=== PATIENT | female | born 1980 | race Caucasian/White ===

== ENCOUNTER 2020-01-03 15:36 | Outpatient (CLI) | payer OTHER, SELFPAY ==
--- NOTE | ~2020-01-03 | MM_ITS ---
EXAMINATION: MM screening [facility] BI w cecily HISTORY: Screening mammogram TECHNIQUE: Craniocaudal and mediolateral oblique 3-D tomosynthesis images were obtained and synthetic 2-D images were generated. CAD analysis was submitted and interpreted. COMPARISON: No prior mammogram is available for comparison at this institution. BREAST PARENCHYMAL COMPOSITION: There are scattered areas of fibroglandular density. FINDINGS: There is no evidence of suspicious mass, calcification, or architectural distortion to sugg est malignancy in either breast. There has been no suspicious interval change. IMPRESSION: 1. No mammographic evidence of malignancy. 2. Recommend routine screening mammography in one year. BI-RADS Category 1: Negative Reviewed, dictated and finalized at location A.
== END 2020-01-03 15:37 | disposition home or self-care (01) ==
LOC: ANHIMG 15:38
PROVIDERS: PCP Family Medicine; Visit Provider Nurse Practitioner
DX: Z12.31 Encounter for screening mammogram for malignant neoplasm of breast (principal)
CPT/HCPCS: 77063; 77067

== ENCOUNTER 2021-01-08 09:50 | Outpatient (CLI) | payer BC, SELFPAY ==
--- NOTE | ~2021-01-08 | MM_ITS ---
EXAMINATION: MM screening [facility] BI w cecily HISTORY: Screening mammogram TECHNIQUE: Craniocaudal and mediolateral oblique 3-D tomosynthesis images were obtained and synthetic 2-D images were generated. CAD analysis was submitted and interpreted. COMPARISON: No prior mammogram is available for comparison at this institution. BREAST PARENCHYMAL COMPOSITION: There are scattered areas of fibroglandular density. FINDINGS: There is no evidence of suspicious mass, calcification, or architectural distortion to sugg est malignancy in either breast. There has been no suspicious interval change. IMPRESSION: 1. No mammographic evidence of malignancy. 2. Recommend routine screening mammography in one year. BI-RADS Category 1: Negative Reviewed, dictated and finalized at location A.
== END 2021-01-08 09:51 | disposition home or self-care (01) ==
LOC: ANHIMG 09:53
PROVIDERS: PCP Family Medicine; Visit Provider Obstetrics & Gynecology Gynecology
DX: Z12.31 Encounter for screening mammogram for malignant neoplasm of breast (principal)
CPT/HCPCS: 77063; 77067

== ENCOUNTER → 2021-01-28 16:05 | Outpatient (CLI) | payer BC, SELFPAY ==
--- NOTE | ~2021-01-28 | XR_ITS ---
EXAMINATION: XR chest 2V DATE: 01/28/2021 16:26 INDICATION: Cough. Chest pain. TECHNIQUE: Frontal and lateral views of the chest were obtained. COMPARISON: None. FINDINGS: The chest demonstrates clear lungs without pneumonia, pleural effusion, or pneumothorax. Th e heart size is normal. IMPRESSION: 1. No acute cardiopulmonary disease. Reviewed, dictated and finalized at location A. T ORDER FRY COOK
== END ==
PROVIDERS: PCP Family Medicine; Visit Provider Family Medicine
DX: R05.9 Cough, unspecified (principal)
CPT/HCPCS: 71046

== ENCOUNTER 2022-01-13 17:36 | Outpatient (CLI) | payer BC, SELFPAY ==
--- NOTE | ~2022-01-13 | MM_ITS ---
EXAMINATION: MM screening [facility] BI w cecily HISTORY: Screening TECHNIQUE: Craniocaudal and mediolateral oblique 3-D tomosynthesis images were obtained and synthetic 2-D images were generated. CAD analysis was submitted and interpreted. COMPARISON: Comparison to multiple prior studies sequentially, with oldest reviewed study dated 12/12. BREAST PARENCHYMAL COMPOSITION: There are scattered areas of fibroglandular density. FINDINGS: There is no evidence of suspicious mass, calcification, or architectural distortion to sugg est malignancy in either breast. There has been no suspicious interval change. IMPRESSION: 1. No mammographic evidence of malignancy. 2. Recommend routine screening mammography in one year. BI-RADS Category 1: Negative Reviewed, dictated and finalized at location A.
== END 2022-01-13 17:37 | disposition home or self-care (01) ==
PROVIDERS: PCP Family Medicine; Visit Provider Nurse Practitioner
DX: Z12.31 Encounter for screening mammogram for malignant neoplasm of breast (principal)
CPT/HCPCS: 77063; 77067

== ENCOUNTER 2023-02-21 16:44 | Outpatient (CLI) | payer BC, SELFPAY ==
--- NOTE | ~2023-02-21 | MM_ITS ---
EXAMINATION: MM screening anthony BI w cecily HISTORY: Screening TECHNIQUE: Craniocaudal and mediolateral oblique 3-D tomosynthesis images were obtained and synthetic 2-D images were generated. CAD analysis was submitted and interpreted. COMPARISON: Comparison to multiple prior studies sequentially, with oldest reviewed study dated 12/12. BREAST PARENCHYMAL COMPOSITION: Breast composed of scattered areas of fibroglandular density FINDINGS: There are developing asymmetries in the right breast including the subareolar location in t he upper outer quadrant. The left breast is stable without evidence for malignancy. IMPRESSION: 1. Developing right breast asymmetries. 2. Additional mammographic views and possible breast ultrasound are recommended. BI-RADS Category 0: Incomplete: Needs additional imaging evaluation. Reviewed, dictated and finalized at location A. IN SEPARATOR OPERATOR IMPRESSION: 1. Developing right breast asymmetries. 2. Additional mammographic views and possible breast ultrasound are recommended . BI-RADS Category 0: Incomplete: Needs additional imaging evaluation.
== END 2023-02-21 16:45 | disposition home or self-care (01) ==
PROVIDERS: PCP Family Medicine; Visit Provider Obstetrics & Gynecology Gynecology
DX: Z12.31 Encounter for screening mammogram for malignant neoplasm of breast (principal); R92.8 Other abnormal and inconclusive findings on diagnostic imaging of breast
CPT/HCPCS: 77063; 77067

== ENCOUNTER 2023-03-16 09:06 | Outpatient (CLI) | payer BC, SELFPAY ==
--- NOTE | ~2023-03-16 | MMUS_ITS ---
EXAMINATION: MM diagnostic anthony RT w cecily, US breast RT limited HISTORY: Right breast focal asymmetries on screening mammogram TECHNIQUE: Additional 3-D tomosynthesis images of the right breast were performed and synthetic 2-D i mages were generated. CAD analysis was submitted and interpreted. High resolution limited right breas t ultrasound was performed. COMPARISON: 02/21/2023, 01/13/2022, 01/08/2021 FINDINGS: MAMMOGRAPHIC FINDINGS: There is a return to baseline fibroglandular appearance with spot compression of the right breast in the areas questioned on screening mammogram. No suspicious mass, calcification, or architectural dist ortion are identified ULTRASOUND: There is no evidence of focal abnormal solid or cystic mass in the vicinity of the mammographic findi ngs in question. IMPRESSION: 1. No mammographic or sonographic evidence of malignancy. 2. Recommend routine screening mammography in one year. BI-RADS Category 1: Negative Reviewed, dictated and finalized at location A. RVISOR CLEANING AND ANNEALING IMPRESSION: 1. No mammographic or sonographic evidence of malignancy. 2. Recommend routine screening mammography in one year. BI-RADS Category 1: Negative
== END 2023-03-16 09:07 | disposition home or self-care (01) ==
LOC: CHSIMG 09:09
PROVIDERS: PCP Family Medicine; Visit Provider Obstetrics & Gynecology Gynecology
DX: R92.8 Other abnormal and inconclusive findings on diagnostic imaging of breast (principal)
CPT/HCPCS: 76642; 77061; 77065; G0279

== ENCOUNTER 2023-04-03 01:26 | Day surgery (SDC) | payer BC, SELFPAY ==
[2023-03-23 12:06] VITALS: BMI 32.3
--- NOTE | 2023-03-23 12:12 | PC.NURSE ---
Report to the Outpatient Waiting Room, entrance under the green pavilion located off [facility], at time _1130_ on date _[id number]_. Planned Procedure Time: _130pm_. Time changes happen often and if your time is changed the preop area will call you the afternoon before. - You and your visitor will be asked to self-screen and do not enter if you have any COVID symptoms. - A mask is optional within the hospital at this time. Patients may have clear liquids (water, carbonated beverages, clear teas, apple juice) until 3 hours prior to surgery with a maximum of 20 ounces. - No food from midnight until time of surgery Take the following medications with a SIP of water the morning of surgery: ___Hydroxyzine if needed. DO NOT STOP ANY OF YOUR OTHER PRESCRIPTION MEDICATIONS PRIOR TO SURGERY ?EXCEPT THE FOLLOWING Medications to discontinue per physician All vitamins Date to take last [phone] Please no make-up, nail mongolian, hairspray, perfume, deodorant, or body powder the day of surgery. No jewelry (including any body piercings) or valuables the day of surgery, leave them at home. Please take a shower or bath the night before, or the morning of, surgery with an antibacterial soap. Wear comfortable, loose fitting clothing. - Jewelry must be removed prior to entering the operating room. Rings and piercings that are not removed may be cut off. - The hospital will not accept responsibility for valuables. - Please leave all valuables, including medications, at home the day of surgery. If you are going home after surgery, a licensed snaker tractor driver must drive you home. - NO public transportation without another adult if you receive anesthesia. - We recommend that an adult stay with you for 24 hours following discharge. - We also recommend that you do not drive, make important decision, drink alcoholic beverages, or take any drugs that were not prescribed by your health care provider for at least 24 hours after your discharge time. Follow any additional instructions given to you from your surgeon. If you or anyone in your household have experienced Covid symptoms in the past week, please notify your surgeon or the nurse liaison at the phone number below for possible testing. Telephone instructions given to _Izzy__and asked if any additional questions and then verbalized understanding. Patient advised to call surgeon office or pre surgery nurse liaison [phone] if any additional questions.
--- NOTE | 2023-04-03 08:24 | P.HP_ITS ---
History of Present Illness History of Present Illness Consent: Risks, benefits, and alternatives have been discussed and questions answered. Patient agrees to proceed with procedure. Chief complaint: Menorrhagia Narrative: Izzy Hawkins is a 43 year old female with prolonged vaginal bleeding. Patient began bleeding on 02/10 and her cycle was heavier than typical using a pad and a tampon and breaking through her to her clothes. This lasted for 2 days. She th en had 2 weeks of continuous bleeding. She stopped for a few days and then began bleeding again on 02/22. It was recommended to undergo D and C hysteroscopy. Risks of infection, bleeding, perforation, and possible pathology are discussed. Patient voices understanding and agrees to proceed. Review of Systems Review of Systems: not repeated day of surgery; patient states no changes in status PMFSH Past Medical History Medical History (Updated 04/03/23 @ 08:27 by Charito Thomas MD) Fracture of 3rd metatarsal Generalized anxiety disorder Mild intermittent asthma with (acute) exacerbation (normal spontaneous vaginal delivery) x4 Surgical History Surgical History (Updated 04/03/23 @ 08:26 by Charito Thomas MD) History of bilateral tubal ligation Family History Family History Sibling Family history of multiple sclerosis Family history of dementia Social History Social History Smoking status: Never smoker Living arrangements: with family Spiritual care concerns: No Meds Home Medications and Allergies Home Medications Medication Instructions Recorded Confirmed Type albuterol sulfate 90 mcg/actuation 2 inh inhalation Q4H PRN shortness 12/23/20 03/23/23 Rx aerosol inhaler (Proventil HFA) of breath or wheezing #8.5 grams cyanocobalamin (vitamin B-12) 500 500 mcg PO DAILY 03/23/23 03/23/23 History mcg tablet (Vitamin B-12) ergocalciferol (vitamin D2) 1,250 1,250 mcg PO WEEKLY 03/23/23 03/23/23 History mcg (50,000 unit) capsule hydroxyzine pamoate 25 mg capsule 25 mg PO TID PRN Anxiety 03/23/23 03/23/23 History multivitamin 1 tablet PO DAILY 03/23/23 03/23/23 History Allergies Allergy/AdvReac Type Severity Reaction Status Date / Time No Known Allergies Allergy Mild Verified 03/23/23 12:03 Exam Const: General: healthy appearing and alert Orientation/consciousness: patient oriented x3 Resp: Effort & Inspection: normal respiratory effort : External Female Exam: normal external appearance Speculum Exam - Vagina: normal appearance of the vagina and normal vaginal discharge Speculum Exam - Cervix: normal appearance of the cervix Bimanual exam- vagina & uterus: uterine size normal and consistency normal Bimanual Exam- Adnexa, other: normal adnexae and No adnexal tenderness Neuro: General: patient oriented x3 Assessment and Plan Assessment and plan (1) Menorrhagia: Code(s): N92.0 - Excessive and frequent menstruation with regular cycle Status: Acute Assessment and Plan: plan to proceed with D&C hysteroscopy
--- NOTE | 2023-04-03 08:24 | WPDHPUPDATE1 ---
History and Physical Update Update Date/Time: 04/03/23 08:24 History and Physical has been reviewed, including an updated exam of the patient. There are NO changes in the patient's condition. Risks, benefits, and alternatives have been discussed and questions answered. Patient agrees to proceed with procedure.
[2023-04-03 09:58] VITALS: BP 120/74; PULSE 87; RESP 18; TEMP 36.7; O2SAT 100
--- NOTE | 2023-04-03 10:21 | P.PNAN_ITS ---
Anes - Initial Pre Proc Eval Procedure: Operation Date: 04/03/23 12:45 Proposed Procedures p Hysteroscopy Dilation and Curettage - Charito Thomas MD Date/Time: 04/03/23 10:21 Surgeon: Charito Thomas MD Pre Op Diagnosis: Menorrhagia Patient Data Age: 43 Gender: F Height: 1.68 m Weight: 91 kg Allergies Allergy/AdvReac Type Severity Reaction Status Date / Time No Known Allergies Allergy Mild Verified 03/23/23 12:03 Home Medications Medication Instructions Recorded Confirmed Type albuterol sulfate 90 mcg/actuation 2 inh inhalation Q4H PRN shortness 12/23/20 03/23/23 Rx aerosol inhaler (Proventil HFA) of breath or wheezing #8.5 grams cyanocobalamin (vitamin B-12) 500 500 mcg PO DAILY 03/23/23 03/23/23 History mcg tablet (Vitamin B-12) ergocalciferol (vitamin D2) 1,250 1,250 mcg PO WEEKLY 03/23/23 03/23/23 History mcg (50,000 unit) capsule hydroxyzine pamoate 25 mg capsule 25 mg PO TID PRN Anxiety 03/23/23 03/23/23 History multivitamin 1 tablet PO DAILY 03/23/23 03/23/23 History Patient hx anesthesia problems: none Family hx anesthesia problems: none Results Review: All pre-operative results and documents have been reviewed as part of the pre- operative evaluation. [facility] Past Medical History Medical History (Updated 04/03/23 @ 08:27 by Charito Thomas MD) Fracture of 3rd metatarsal Generalized anxiety disorder Mild intermittent asthma with (acute) exacerbation (normal spontaneous vaginal delivery) x4 Surgical History Surgical History (Updated 04/03/23 @ 08:26 by Charito Thomas MD) History of bilateral tubal ligation Family History Family History Sibling Family history of multiple sclerosis Family history of dementia Social History Social History Smoking status: Never smoker Living arrangements: with family Spiritual care concerns: No Anes - Eval Final PreProcedure Day of Procedure 04/03/23 10:21 Patient weight: obese Heart: regular rate and rhythm Lungs: clear to auscultation Airway: Mallampati scale class II Neurological: alert and oriented Last oral intake: >/= 8 hours ASA classification: II Emergent: no Anesthetic plan: proceed Anesthesia type and monitoring: general GIVS and standard monitoring Results Review: All pre-operative results and documents have been reviewed as part of the pre- operative evaluation. Informed Consent: The patient's anesthetic plan and its attendant risks and benefits were discussed with the patient/family/POA. Questions were solicited and answers provided to the satisfaction of the patient/family/POA.
[2023-04-03] MEDS: ACETAMINOPHEN 500 MG TABLET 1000 MG PO (10:28)
[2023-04-03] MEDS: LACTATED RINGERS 1,000 ML 30 ML IV CONT (10:28)
[2023-04-03 11:50] VITALS: BP 98/54; PULSE 71; RESP 12; O2SAT 94
--- NOTE | 2023-04-03 11:50 | P.OP_ITS ---
Procedure Note - Detailed Date of Procedure 04/03/23 Pre-op Diagnosis Menorrhagia Post-op Diagnosis Same Procedure Performed D&C hysteroscopy Surgeon Charito Thomas MD Anesthesia MAC Findings The uterus sounds to 7cm and appears grossly normal. Description of Procedure The patient is taken to the operating room and placed under anesthesia in the dorsal lithotomy position. She was prepped and draped in the usual sterile fashion. [place] speculum was placed in the vagina and the cervix grasped on the anterior lip with a tenaculum. The uterus is sounded to 7cm. The diagnostic hysteroscope was placed and with everything appearing normal it is immediately removed. The sharp curette is used to curette the endometrium until a good uterine cry was noted in all areas. All instruments are removed. Sponge, needle, and instrument counts are normal per the OR staff. The patient was awakened from anesthesia and taken to recovery in stable condition. Estimated Blood Loss 5 Drains No Packing No Pathology Yes ( Endometrial curettings) Complications No immediate complications Condition Stable Disposition PACU
[2023-04-03 12:20] VITALS: BP 101/54; PULSE 53; RESP 14
[2023-04-03 12:35] VITALS: BP 102/62; PULSE 44; RESP 16
== END 2023-04-03 12:55 | disposition home or self-care (01) ==
PROVIDERS: PCP Family Medicine; Visit Provider Obstetrics & Gynecology Gynecology
PROC: 0U5B8ZZ Destruction of Endometrium, Via Natural or Artificial Opening Endoscopic (ICD-10-PCS; CPT 58563; principal; 2023-04-03 12:45)
DX: N92.0 Excessive and frequent menstruation with regular cycle (principal); F41.1 Generalized anxiety disorder; J45.21 Mild intermittent asthma with (acute) exacerbation; E66.9 Obesity, unspecified; Z68.32 Body mass index [BMI] 32.0-32.9, adult; Z79.51 Long term (current) use of inhaled steroids; Z98.51 Tubal ligation status
CPT/HCPCS: 58558; 88305; A9270; J1100; J2250; J2405; J2704; J3010; J7120

== ENCOUNTER → 2023-05-01 13:38 | Outpatient (CLI) | payer BC, SELFPAY ==
--- NOTE | ~2023-05-01 | XR_ITS ---
EXAMINATION: XR hand BI arthritis min 3V DATE: 05/01/2023 14:02 INDICATION: Hand pain, unspecified TECHNIQUE: Posteroanterior, lateral, and oblique views of the left and of the right hands as well as a ballcatchers view of both hands were obtained. COMPARISON: None. FINDINGS: Bone alignment is normal. There is no fracture. No abnormal erosion or sclerosis are identified. Ther e is mild periarticular soft tissue swelling near the proximal interphalangeal joints. The joint spac es are maintained. IMPRESSION: 1. Mild periarticular soft tissue swelling of the proximal interphalangeal joints without abnormal er osions identified. Reviewed, dictated and finalized at location L. AL EDUCATION TEACHER IMPRESSION: 1. Mild periarticular soft tissue swelling of the proximal interphalangeal join ts without abnormal erosions identified.
== END ==
PROVIDERS: PCP Family Medicine; Visit Provider Nurse Practitioner Family
DX: M25.50 Pain in unspecified joint (principal); M79.89 Other specified soft tissue disorders
CPT/HCPCS: 73130

== ENCOUNTER 2024-04-18 13:50 | Outpatient (CLI) | payer BC, SELFPAY ==
--- NOTE | ~2024-04-18 | MM_ITS ---
EXAMINATION: MM screening anthony BI w cecily HISTORY: Screening TECHNIQUE: Craniocaudal and mediolateral oblique 3-D tomosynthesis images were obtained and synthetic 2-D images were generated. CAD analysis was submitted and interpreted. COMPARISON: Comparison to multiple prior studies sequentially, with oldest reviewed study dated 12/12. BREAST PARENCHYMAL COMPOSITION: Dense: The breasts are heterogeneously dense, which may obscure small masses FINDINGS: There is a focal asymmetry in the periareolar location of the right breast which has develo ped since prior examination. The left breast is stable without evidence for malignancy. IMPRESSION: 1. Developing right breast asymmetry in the periareolar location. 2. Additional mammographic views and possible breast ultrasound are recommended. BI-RADS Category 0: Incomplete: Needs additional imaging evaluation. Reviewed, dictated and finalized at location B. CTOR OF REIMBURSEMENT IMPRESSION: 1. Developing right breast asymmetry in the periareolar location. 2. Additional mammographic views and possible breast ultrasound are recommended . BI-RADS Category 0: Incomplete: Needs additional imaging evaluation.
--- OUTSIDE RECORDS SUMMARY | 2024-04-18 13:55 | XMS_ITS | Clinical Summary ---
Author Organization [facility] Address [address] [place] [address] Phone Care Team Providers Care Blending Kettle Tender Name Role Phone Carolin Jameson MD Primary Care Provider Social History Tobacco Use Types Packs/Day Years Used Date Smoking Tobacco: Never Assessed Comments Unknown Sex and Gender Information Value Date Recorded Sex Assigned at Not on file Legal Sex Female 6:11 AM EVENTS MANAGER Gender Identity Not on file Sexual Orientation Not on file Plan of Treatment Health Maintenance Due Date Last Done Comments DTAP/TDAP/TD VACCINES (1 - Tdap) 12/31/1998 HEPATITIS B VACCINES (1 of 3 - 19+ 3-dose series) 12/31/1998 CERVICAL CANCER SCREENING 12/31/2009 BREAST CANCER SCREENING 2020 INFLUENZA VACCINE (#1) 2023 HPV VACCINES Aged Out No longer eligi ble based on patient's age to complete this topic Care Teams Blending Kettle Tender Relationship Specialty Start Date End Date Carolin Jameson MD PCP - General Family Practice 12/15/11
--- OUTSIDE RECORDS SUMMARY | 2024-04-18 13:55 | XMS_ITS | Clinical Summary ---
Author Organization [facility] Address [address] [place] [address] Care Team Providers Care Cyber Workforce Developer And Manager Name Role Phone Carolin Jameson MD Primary Care Provider [phone] Source Comments [facility],non-owned Affiliates and Associated Physician Practices is amultiple site organization consisting of ambulatory clinics and hospital sitesin [place], [place], [place] and [place]. This disclosure is being madepursuant to the Care Everywhere program and may not contain all information available regarding this patient. Last updated 17.[facility] Allergies No known active allergies Medications * Be aware that medications may not be up to date on this document. Alwaysverify current medications with the patient. Medication Sig Dispensed Refills Start Date End Date Status Multiple Vitamins-Minerals (MULTIVITAMIN & MINERAL PO) Active methotrexate 2.5 MG tablet TAKE 5 TABLETS BY MOUTH IN THE MORNING AND 5 TABLETS IN THE EVENING ONE DAY A WEEK Active folic acid (Folvite) 1 MG tablet Take 1 (one) tablet by mouth once daily Active Active Problems Problem Noted Date Diagnosed Date Basal cell carcinoma of nose 11/29/2017 Anxiety 10/10/2012 Encounters Date Type Department Care Team Description 04/16/2024 10:00 AM PEANUT FARMER Office Visit [facility] - TUBER MACHINE OPERATOR [address] [place] [address] Chetna Coaets Che, MD Incomplete bladder emptying (Primary Dx); Urgency incontinence; Stress incontinence; Rectocele; Perineocele 04/16/2024 Travel 04/05/2024 Travel from Last 3 Months Immunizations Name Administration Dates Next Due INFLUENZA VACCINE, QUADR. (F LUZONE; FLULAVAL; FLUARIX; AFLURIA QUADRIVALENT; 6MO+), 0.5 ML (IIV4) 12/26/2018 Family History Medical History Relation Name Comments Cancer - Liver Father Relation Name Status Comments Brother Alive Father Maternal Grandfather Maternal Grandmother Mother Paternal Grandfather Paternal Grandmother Social History Tobacco Use Types Packs/Day Years Used Date Smoking Tobacco: Never Smokeless Tobacco: Never Alcohol Use Standard Drinks/Week Comments Yes 0 (1 standard drink = 0.6 oz pur e alcohol) 1 Sex and Gender Information Value Date Recorded Sex Assigned at Not on file Gender Identity Not on file Sexual Orientation Not on file Last Filed Vital Signs Vital Sign Reading Time Taken Comments Blood Pressure 122/72 04/16/2024 9:34 AM PEANUT FARMER Pulse 64 12/13/2017 8:54 AM CDT Temperature - - Respiratory Rate - - Oxygen Saturation 98% 12/13/2017 8:54 AM CDT Inhaled Oxygen Concentration - - Weight 75.2 kg (165 lb 12.8 oz) 04/16/2024 9:34 AM PEANUT FARMER Height 167.6 cm (5' 6 ) 04/16/2024 9:34 AM PEANUT FARMER Body Mass Index 26.76 04/16/2024 9:34 AM PEANUT FARMER Plan of Treatment Upcoming Encounters Date Type Department Care Team (Late st Contact Info) Description 05/28/2024 1:30 PM CDT Procedure visit [facility] - TUBER MACHINE OPERATOR [address] [facility] [address] [place] [address] Chetna Coates Che, MD [address] [facility] [address] [place] [address] Health Maintenance Due Date Last Done Comments LIPID TESTING 1980 MAMMOGRAM 1980 PAP SMEAR 1980 HIV SCREENING 12/31/1994 HEPATITIS C SCREENING 12/27/1997 DTAP/TDAP/TD VACCINES (1 - Tdap) 12/31/1998 HEPATITIS B VACCINE (1 of 3 - 19+ 3-dose series) 12/31/1998 COVID-19 VACCINE (2 2023-2 5 season) 2023 06/15/2020 INFLUENZA VACCINE (#1) 2023 12/26/2018 DEPRESSION SCREENING 03/13/2024 SCREENING FOR DIABETES 04/16/2024 ZOSTER VACCINE (1 of 2) 12/31/2029 HIB VACCINE Aged Out No longer eligi ble based on patient's age to complete this topic HPV VACCINE Aged Out No longer eligi ble based on patient's age to complete this topic MENINGOCOCCAL (Group B) VACCINE Aged Out No longer eligible based on patient's age to complete this topic MENINGOCOCCAL VACCINE Aged Out No sesar gutierrez eligible based on patient's age to complete this topic PNEUMOCOCCAL VACCINE Aged Out No long er eligible based on patient's age to complete this topic Procedures Procedure Name Priority Date/Time Associated Diagnosis Comments CULTURE URINE COMPREHENSIVE Routine 04/16/2024 10:55 AM PEANUT FARMER Incomplete bladder emptying Urgency incontinence Stress incontinence RI INSERT NON-INDWELLING BLADDER Routine 04/16/2024 10:50 AM PEANUT FARMER Incomplete bladder emptying Urgency incontinence Stress incontinence URINALYSIS AUTO - POINT OF CARE (AMB) [facility] Routine 04/16/2024 Incomplete bladder emptying Urgency incontinence Stress incontinence from Last 3 Months Results * RI INSERT NON-INDWELLING BLADDER (04/16/2024 10:50 AM PEANUT FARMER) Narrative Chetna Coates Che, MD - 04/16/2024 10:50 AM PEANUT FARMER Chetna Coates Che, MD 04/16/2024 11:57 AM The patient was prepped with betadine (or with hibiclens or other antiseptic agent if allergic to topical iodine). She understood the rationale for the procedure and agreed to the procedure. A 14F short female catheter was then advanced into the urethra and urine was collected for bedside urinalysis as well as a urine culture and/or formal urinalysis as needed. The post void residual is as noted in the progress note, as are results of the dipstick taken. The patient tolerated the procedure well. Chetna Coates MD PROCEDURE/MINOR SURG ICAL ORDERABLES * URINALYSIS AUTO - POINT OF CARE (AMB) [facility] (04/16/2024) Glucose UA neg OTHER LAB Bilirubin UA POCT neg OTHER LAB Ketones UA POCT neg OTHER LAB Specific [place] UA 1.010 OTHER LAB Blood Urine POCT neg OTHER LAB pH UA 7.0 OTHER LAB Protein UA neg OTHER LAB Urobilinogen UA 0.2 OTHER LAB Nitrite UA neg OTHER LAB WBC UA neg OTHER LAB Urine URINE / Unknown 04/16/2024 Chetna Coates MD LAB - POINT OF CARE ORDERABLES OTHER LAB from Last 3 Months Care Teams Cyber Workforce Developer And Manager Relationship Specialty Start Date End Date Carolin Jameson MD [address] [place] [address] PCP - General 11/29/17
--- OUTSIDE RECORDS SUMMARY | 2024-04-18 13:55 | XMS_ITS | Referral Summary ---
Author Organization [address] [address] Care Team Providers Care Transportation Modeler Name Role Phone Sonny Jameson MD Primary Care Provider [phone] [phone] Encounters Date Type Department Care Team Description 02/20/2024 10:05 AM REBEAMER Ancillary Procedure [facility] Imaging at [address] [address] Lower respiratory infection 02/20/2024 10:00 AM REBEAMER Office Visit [facility] Convenient Care at [address] [address] Rere Reyes, YARELI Lower respiratory infection (Primary Dx) from Last 3 Months Allergies No known active allergies Medications multivitamin with minerals tablet Take by mouth Active methotrexate 2.5 mg tablet TAKE 5 TABLETS IN THE MORNING AND 5 TABLETS IN THE EVENING ONE DAY A WEEK ONLY 01/30/2024 Active folic acid (FOLVITE) 1 mg tablet 01/22/2024 Active benzonatate (TESSALON) 100 mg capsuleIndicati ons:Cough Take 1 capsule (100 mg total) by mouth 3 (three) times a day as needed for cough 42 capsule 02/20/2024 Active Active Problems Problem Noted Date Diagnosed Date Anxiety 10/10/2012 Social History Tobacco Use Types Packs/Day Years Used Date Smoking Tobacco: Never Smokeless Tobacco: Never Tobacco Cessation:Counseling Given: Not Answered Comments Unknown Sex and Gender Information Value Date Recorded Sex Assigned at Not on file Legal Sex Female 1:58 AM REBEAMER Gender Identity Not on file Sexual Orientation Not on file Last Filed Vital Signs Vital Sign Reading Time Taken Comments Blood Pressure 108/66 02/20/2024 9:53 AM REBEAMER Pulse 86 02/20/2024 9:53 AM REBEAMER Temperature 36.9 C (98.4 F) 02/20/2024 9:53 AM REBEAMER Respiratory Rate 20 02/20/2024 9:53 AM REBEAMER Oxygen Saturation 97% 02/20/2024 9:53 AM REBEAMER Inhaled Oxygen Concentration - - Weight 75.3 kg (166 lb) 02/20/2024 9:53 AM REBEAMER Height 169.5 cm (5' 6.73 ) 01/29/2023 9:44 AM CS T Body Mass Index 26.21 01/29/2023 9:44 AM REBEAMER Plan of Treatment Not on file Procedures Procedure Name Priority Date/Time Associated Diagnosis Comments XR CHEST PA LATERAL 2 VIEWS Schedule MELLISA, Read MELLISA (Appt Today, Awaiting Results) 02/20/2024 10:09 AM REBEAMER Lower respiratory infection from Last 3 Months Results * XR Chest Pa Lateral 2 Views (02/20/2024 10:09 AM REBEAMER) Anatomical Region Laterality Modality Body, Chest N/A Digital Radiogra phy 02/20/2024 11:4 6 AM REBEAMER Narrative 02/20/2024 11:47 AM REBEAMER EXAM DESCRIPTION: XR CHEST PA LATERAL 2 VIEWS REASON FOR STUDY: cough Pt complains of cough x 10 days. No chest surgery. No asthma,heart disease,cancer,copd. No smoking TECHNIQUE: Frontal and lateral radiographic view(s) of the chest. COMPARISON: None FINDINGS: LUNGS: Subtle patchy opacity in the lingula could represent atelectasis or pneumonia. No sizable pleural effusion or pneumothorax. HEART/MEDIASTINUM: Cardiac silhouette normal in size. Mediastinal and hilar contours appear normal. LINES/TUBES: None. BONES: No acute osseous abnormality. IMPRESSION: Subtle patchy opacity in the lingula could represent atelectasis or pneumonia. THIS IS AN ELECTRONICALLY VERIFIED FINAL REPORT 02/20/2024 11:47 AM - Electronically signed by Amandeep Christie M.D. AM T: Report ID: [id number] Reading Location: [id number] Procedure Note Amandeep Christie MD - 02/20/2024 EXAM DESCRIPTION: XR CHEST PA LATERAL 2 VIEWS REASON FOR STUDY: cough Pt complains of cough x 10 days. No chest surgery. No asthma,heart disease,cancer,copd. No smoking TECHNIQUE: Frontal and lateral radiographic view(s) of the chest. COMPARISON: None FINDINGS: LUNGS: Subtle patchy opacity in the lingula could represent atelectasis or pneumonia. No sizable pleural effusion or pneumothorax. HEART/MEDIASTINUM: Cardiac silhouette normal in size. Mediastinal andhilar contours appear normal. LINES/TUBES: None. BONES: No acute osseous abnormality. IMPRESSION: Subtle patchy opacity in the lingula could representatelectasis or pneumonia. THIS IS AN ELECTRONICALLY VERIFIED FINAL REPORT 02/20/2024 11:47 AM - Electronically signed by Amandeep Christie M.D. AM T: Report ID: [id number] Reading Location: [place] [address] Rere Reyes DRYWALL PROFESSIONAL IMG XR PROCEDURES Final Re sult from Last [place] [address] [employer] [place] [employer] [place] Care Teams Transportation Modeler Relationship Specialty Start Date End Date Sonny Jameson MD PCP - General Family Medicine 02/13/22
--- OUTSIDE RECORDS SUMMARY | 2024-04-18 13:55 | XMS_ITS | Referral Summary ---
Author Organization [facility] Address [address] [facility] [place] [address] Care Team Providers Care Plaster Mechanic Name Role Phone Carolin Jameson MD Primary Care Provider [phone] [phone] Source Comments [facility],non-owned Affiliates and Associated Physician Practices is amultgrant hospitale site organization consisting of ambulatory clinics and hospital sitesin [place] and [place]. This disclosure is being madepursuant to the Care Everywhere program and may not contain all information available regarding this patient. 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 (F LUZONE; FLULAVAL; FLUARIX; AFLURIA QUADRIVALENT; 6MO+), 0.5 ML (IIV4) 12/26/2018 Social History Tobacco Use Types Packs/Day Years [...] Comments Blood Pressure 122/72 04/16/2024 9:34 AM DESK CLERK Pulse 64 12/13/2017 8:54 AM CDT Temperature - - Respiratory Rate - - Oxygen Saturation 98% 12/13/2017 8:54 AM CDT Inhaled Oxygen Concentration - - Weight 75.2 kg (165 lb 12.8 oz) 04/16/2024 9:34 AM DESK CLERK Height 167.6 cm (5' 6 ) 04/16/2024 9:34 AM DESK CLERK Body Mass Index 26.76 04/16/2024 9:34 AM DESK CLERK Plan of Treatment Upcoming Encounters Date Type Department Care Team (Late st Contact Info) Description 05/28/2024 1:30 PM CDT Procedure visit [facility] - POWER PLANT OPERATOR APPRENTICE [address] [address] Chetna Coates Che, MD [address] [address] Procedures Procedure Name Priority Date/Time Associated Diagnosis Comments CULTURE URINE COMPREHENSIVE Routine 04/16/2024 10:55 AM DESK CLERK Incomplete bladder emptying Urgency incontinence Stress incontinence ND INSERT NON-INDWELLING BLADDER Routine 04/16/2024 10:50 AM DESK CLERK Incomplete bladder emptying Urgency incontinence Stress incontinence URINALYSIS AUTO - POINT OF CARE (AMB) [facility] Routine 04/16/2024 Incomplete bladder emptying Urgency incontinence Stress incontinence from Last 3 Months Results * ND INSERT NON-INDWELLING BLADDER (04/16/2024 10:50 AM DESK CLERK) Narrative Chetna Coates Che, MD - 04/16/2024 10:50 AM DESK CLERK Chetna Coates Che, MD 04/16/2024 11:57 AM [...] Ketones UA POCT neg OTHER LAB Specific [place] UA 1.010 OTHER LAB Blood Urine POCT neg OTHER LAB pH UA 7.0 OTHER LAB Protein UA neg OTHER LAB Urobilinogen UA 0.2 OTHER LAB Nitrite UA neg OTHER LAB WBC UA neg OTHER LAB Urine URINE / Unknown 04/16/2024 Chetna Coates MD LAB - POINT OF CARE ORDERABLES OTHER LAB from Last 3 Months Care Teams Plaster Mechanic Relationship Specialty Start Date End Date Carolin Jameson MD [address] [place] [phone] PCP - General 11/29/17
--- OUTSIDE RECORDS SUMMARY | 2024-04-18 13:55 | XMS_ITS | Encounter Summary ---
Author Organization [facility] Address [address] [facility] [place] [address] Care Team Providers Care Flight Crew Scheduler Name Role Phone Carolin Jameson MD Primary Care Provider [phone] [phone] Encounter Details Date Type Department Care Team (Late st Contact Info) Description 01/09/2023 Lab Requisition [facility] - DermPath Lab [address] [facility] [place] [address] Rogerio Clemens MD [address] [place] [address] Social History Tobacco Use Types Packs/Day Years Used Date Smoking Tobacco: Never Smokeless Tobacco: Never Alcohol Use Standard Drinks/Week Comments Yes 0 (1 standard drink = 0.6 oz pur e alcohol) Sex and Gender Information Value Date Recorded Sex Assigned at Not on file Gender Identity Not on file Sexual Orientation Not on file documented as of this encounter Plan of Treatment Upcoming Encounters Date Type Department Care Team (Late Contact Info) Description 05/28/2024 1:30 PM CDT Procedure visit [facility] - MANAGER DIESEL [address], [facility] [address] [place] [address] Chetna Coates Che, MD [address] [facility] [address] [place] [address] documented as of this encounter Procedures Procedure Name Priority Date/Time Associated Diagnosis Comments DERMATOPATHOLOGY Routine 01/06/2023 12:0 0 AM CDT documented in this encounter Results * DERMATOPATHOLOGY (01/06/2023 12:00 AM CDT) Case Report Dermatopathology Report Case: [id number] Authorizing Provider: Rogerio Clemens MD Collected: 01/06/2023 12:00 AM Ordering Location: [facility] DermPath Lab Received: 01/09/2023 04:08 PM Pathologist: Deanne Leyva MD Specimen: Skin, lat to left ala on cheek 1:45 PM [facility] DERMATOPATHOLOGY LABORATORY Amended Report Correction of Site location from Chest to Cheek 1:45 PM [facility] DERMATOPATHOLOGY LABORATORY Final Diagnosis Specimen A. SKIN, lat to left ala on cheek: GRANULOMATOUS DERMATITIS CONSISTENT WITH A RUPTURED CYST OR HAIR FOLLICLE (L72.0) (see comment) 1:45 PM [facility] DERMATOPATHOLOGY LABORATORY Amendment electronically signed by Deanne Leyva MD on 01/16/2023 at 1:45 PM Clinical History R/O SCC vs BCC 1:45 PM [facility] DERMATOPATHOLOGY LABORATORY Gross Description Specimen A: Received is one formalin filled container labeled with the patient's name and designated lat to left ala on cheek. The specimen consists of a (2) pieces shave biopsy measuring 4x2x1, 5x4x1 mm. Jar 0. 1:45 PM REGIONAL SALES TRAINER DERMATOPATHOLOGY LABORATORY Microscopic Description Specimen A. SKIN, lat to left ala on cheek: Neutrophils, histiocytes, and multinucleated giant cells are present within the dermis. COMMENT: Given the superficial nature of the biopsy specimen, a deeper dermal process cannot be excluded. 1:45 PM [facility] DERMATOPATHOLOGY LABORATORY Disclaimer An external and internal positive and negative controls are appropriate for the histochemical, immunohistochemical and immunofluorescence stain(s) in this case (if any), except where stated explicitly. The performance characteristics of the stain(s) cited in this report were developed and its performance characteristic determined by the Dermatopathology Laboratory at [facility], directed by Dr. Cindy Thornton. These tests need not be, and therefore are not, approved by the [place] Food and Drug Administration. The tests are used for clinical purposes. Billing Codes Specimen Charges Stain Charges 76000 1 3 1:45 PM REGIONAL SALES TRAINER DERMATOPATHOLOGY LABORATORY Embedded Images 3 1:45 PM REGIONAL SALES TRAINER DERMATOPATHOLOGY LABORATORY Pathology/Cytolog y TISSUE SPECIMEN FROM SKIN / Unknown 01/06/2023 01/09/2023 4:08 PM CDT Rogerio Clemens MD LAB - PATHOLOGY/CYTO LOGY ORDERABLES DERMATOPATHOLOGY LABORATORY [facility] - Department of Dermatology [address], [address] [phone] documented in this encounter Visit Diagnoses Not on filedocumented in this encounter Care Teams Flight Crew Scheduler Relationship Specialty Start Date End Date Carolin Jameson MD [address] [place] [phone] PCP - General 11/29/17 documented as of this encounter
--- OUTSIDE RECORDS SUMMARY | 2024-04-18 13:55 | XMS_ITS | Encounter Summary ---
Author Organization [facility] Address [address] [facility] [place] [address] Care Team Providers Care Venue Attendant Name Role Phone Carolin Jameson MD Primary Care Provider [phone] [phone] Encounter Details Date Type Department Care Team (Late Contact Info) Description 10/13/2017 Lab Requisition [facility] [address] [facility] [place] [address] Rogerio Clemens MD [address] [place] [address] Social History Tobacco Use Types Packs/Day Years Used Date Smoking Tobacco: Never Assessed Sex and Gender Information Value Date Recorded Sex Assigned at Not on file Gender Identity Not on file Sexual Orientation Not on file documented as of this encounter Plan of Treatment Upcoming Encounters Date Type Department Care Team (Late Contact Info) Description 05/28/2024 1:30 PM CDT Procedure visit [facility] - LOG STACKER OPERATOR [address] [address] Chetna Coates Che, MD [address] [facility] [address] [place] [address] documented as of this encounter Procedures Procedure Name Priority Date/Time Associated Diagnosis Comments DERMATOPATHOLOGY Routine 10/12/2017 12:0 0 AM CDT documented in this encounter Results * DERMATOPATHOLOGY (10/12/2017 12:00 AM CDT) Case Report Dermatopathology Report Case: [id number] Authorizing Provider: Rogerio Clemens MD Collected: 10/12/2017 12:00 AM Pathologist: Petty Raymundo MD Received: 10/13/2017 12:35 PM Specimens: A) - Skin, left medial superior knee B) - Skin, left side nose near canthus 11:33 AM CDT DERMATOPATHOLOGY LABORATORY Final Diagnosis Specimen A. 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 SKIN, left side nose near canthus: BASAL CELL CARCINOMA (C44.311) 11:33 AM CDT DERMATOPATHOLOGY LABORATORY Clinical History A: R/O hemangioma. B: R/O ISK, BCC, other. 11:33 AM CDT DERMATOPATHOLOGY LABORATORY Gross Description Specimen A: Received is one formalin filled container labeled with the patient's name and designated left medial superior knee. The specimen consists of an excision measuring 4h7b4ig. The epidermal surface is unremarkable. The margin is inked green. The specimen is bisected and submitted in 1 cassette. Jar 0. Specimen B: Received is one formalin filled container labeled with the patient's name and designated left side nose near canthus. The specimen consists of a shave biopsy measuring 4f8x8nc. Jar 0. 8 11:33 AM CDT DERMATOPATHOLOGY LABORATORY Microscopic Description Specimen A. SKIN, left medial superior knee: In the dermis, there are dilated vascular spaces surrounded by widely spaced endothelial cells. Specimen B. SKIN, left side nose near canthus: Within the dermis there are aggregates of basaloid cells with a high nuclear to cytoplasmic ratio and peripheral palisading. 11:33 AM CDT DERMATOPATHOLOGY LABORATORY Disclaimer An external and internal positive and negative controls are appropriate for the histochemical, immunohistochemical and immunofluorescence stain(s) in this case (if any), except where stated explicitly. The performance characteristics of the stain(s) cited in this report were developed and its performance characteristic determined by the Dermatopathology Laboratory at [facility]. These tests need not be, and therefore are not, approved by the [place] Food and Drug Administration. The tests are used for clinical purposes. Billing Codes Specimen Charges Stain Charges 30180 17287 1 1 8 11:33 AM CDT DERMATOPATHOLOGY LABORATORY Embedded Images 8 11:33 AM CDT DERMATOPATHOLOGY LABORATORY Pathology/Cytology TISSUE SPECIMEN FROM SKIN / Unknown 10/12/2017 10/13/2017 12:35 PM CDT Miscellaneous samples (specimen) TISSUE SPECIMEN FROM SKIN / Unknown 10/12/2017 10/13/2017 12:35 PM CDT Rogerio Clemens MD LAB - PATHOLOGY/CYTO LOGY ORDERABLES DERMATOPATHOLOGY LABORATORY [facility] - Department of Dermatology [address] [place] [address] [address] [phone] documented in this encounter Visit Diagnoses Not on filedocumented in this encounter Care Teams Venue Attendant Relationship Specialty Start Date End Date Carolin Jameson MD [address] [place] [phone] PCP - General 11/29/17 documented as of this encounter
--- OUTSIDE RECORDS SUMMARY | 2024-04-18 13:55 | XMS_ITS | Clinical Summary ---
Author Organization [address] Address [address] [place] [address] Care Team Providers Care Nurse Practical Name Role Phone Sonny Jameson MD Primary Care Provider [phone] [phone] Allergies No known active allergies Medications multivitamin [...] Problem Noted Date Diagnosed Date Anxiety 10/10/2012 Encounters Date Type Department Care Team Description 02/20/2024 10:05 AM SUPERVISOR PIPE FINISHING Ancillary Procedure [facility] Imaging at [address] [address] Lower respiratory infection 02/20/2024 10:00 AM SUPERVISOR PIPE FINISHING Office Visit [facility] Convenient Care at [address] [address] Rere Reyes NP Lower respiratory infection (Primary Dx) from Last 3 Months Social History Tobacco Use Types Packs/Day Years Used Date Smoking Tobacco: Never Smokeless Tobacco: Never Tobacco Cessation:Counseling Given: Not Answered Comments Unknown Sex and Gender Information Value Date Recorded Sex Assigned at Not on file Legal Sex Female 1:58 AM SUPERVISOR PIPE FINISHING Gender Identity Not on file Sexual Orientation Not on file Obstetrics History Last Filed Vital Signs Vital Sign Reading Time Taken Comments Blood Pressure 108/66 02/20/2024 9:53 AM SUPERVISOR PIPE FINISHING Pulse 86 02/20/2024 9:53 AM SUPERVISOR PIPE FINISHING Temperature 36.9 C (98.4 F) 02/20/2024 9:53 AM SUPERVISOR PIPE FINISHING Respiratory Rate 20 02/20/2024 9:53 AM SUPERVISOR PIPE FINISHING Oxygen Saturation 97% 02/20/2024 9:53 AM SUPERVISOR PIPE FINISHING Inhaled Oxygen Concentration - - Weight 75.3 kg (166 lb) 02/20/2024 9:53 AM SUPERVISOR PIPE FINISHING Height 169.5 cm (5' 6.73 ) 01/29/2023 9:44 AM CS T Body Mass Index 26.21 01/29/2023 9:44 AM SUPERVISOR PIPE FINISHING Plan of Treatment Health Maintenance Due Date Last Done Comments Breast Cancer Screening-Mammogram 1980 Cervical Cancer Screening 1980 Depression Screening 1980 Hepatitis C Screening 1980 Pneumococcal vaccine <65 (1 of 2 - PCV) 12/31/1985 DTaP/Tdap/Td Vaccine (1 - Tdap) 12/31/1990 Varicella Vaccines (1 of 2 - 13+ 2-dose series) 12/31/1992 Hepatitis B Screening 12/31/1997 Regular Well Visit/Exam 18-64 12/31/1997 Zoster Vaccine (1 of 2) 12/31/1998 Covid-19 Vaccine (2 - Jansse n risk series) 07/13/2020 06/15/2020 Influenza Vaccine (#1) 2023 12/26/2018 HPV Vaccines Aged Out No longer eligi ble based on patient's age to complete this topic Procedures Procedure Name Priority Date/Time Associated Diagnosis Comments XR CHEST PA LATERAL 2 VIEWS Schedule MELLISA, Read MELLISA (Appt Today, Awaiting Results) 02/20/2024 10:09 AM SUPERVISOR PIPE FINISHING Lower respiratory infection from Last 3 Months Results * XR Chest Pa Lateral 2 Views (02/20/2024 10:09 AM SUPERVISOR PIPE FINISHING) Anatomical Region Laterality Modality Body, Chest N/A Digital Radiogra phy 02/20/2024 11:4 6 AM SUPERVISOR PIPE FINISHING Narrative 02/20/2024 11:47 AM SUPERVISOR PIPE FINISHING EXAM DESCRIPTION: XR CHEST PA LATERAL 2 [...] Amandeep Christie M.D. AM T: Report ID: [id number] Reading Location: [id number] Procedure Note Amandeep Christie MD - 02/20/2024 [...] Amandeep Christie M.D. AM T: Report ID: [id number] Reading Location: [id number] Rere Reyes NP IMG XR PROCEDURES Final Re sult from Last [address] [place] [address] [employer] [place] [employer] [place] Care Teams Nurse Practical Relationship Specialty Start Date End Date Sonny Jameson MD PCP - General Family Medicine 02/13/22
--- OUTSIDE RECORDS SUMMARY | 2024-04-18 13:55 | XMS_ITS | Encounter Summary ---
Author Organization [facility] Address [address] [facility] [place] [address] Care Team Providers Care Fishing Game Warden Name Role Phone Carolin Jameson MD Primary Care Provider [phone] [phone] Encounter Details Date Type Department Care Team (Late st Contact Info) Description 02/06/2023 Lab Requisition [facility] - DermPath Lab [address] [facility] [place] [address] Rogerio Clemens MD [address] [place] [address] Social History Tobacco Use Types [...] CDT Procedure visit [facility] - SERVICE COUNTER CASHIER [address], [facility] [address] [place] [address] Chetna Coates Che, MD [address] [facility] [address] [place] [address] documented as of this encounter Procedures Procedure Name Priority Date/Time Associated Diagnosis Comments DERMATOPATHOLOGY Routine 02/01/2023 3:33 AM TRANSFER AND PUMPHOUSE OPERATOR CHIEF documented in this encounter Results * DERMATOPATHOLOGY (02/01/2023 3:33 AM TRANSFER AND PUMPHOUSE OPERATOR CHIEF) Case Report Dermatopathology Report Case: [id number] Authorizing Provider: Rogerio Clemens MD Collected: 02/01/2023 03:33 AM Ordering Location: [facility] DermPath Lab Received: 02/06/2023 12:38 PM Pathologist: Micaela Mcpherson MD Specimen: Skin, lateral to left ala on cheek 9:54 AM [facility] Final Diagnosis Specimen A. 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 Check Margins. Check Biopsy [id number] 9:54 AM [facility] Gross Description Specimen A: Received is one formalin filled container labeled with the patients name and designated lateral to left ala on cheek. The specimen consists of two (2) pieces of a shave removal measuring 7x7x1, 2x2x1 mm. Jar 0. 9:54 AM [facility] D[facility] Microscopic Description Specimen A. SKIN, lateral to left ala on cheek: There are nests of cytologically bland melanocytes within the dermis that mature with depth. This lesion is present at the margin of the specimen. There is adjacent focal residual neutrophils, histiocytes, and multinucleated giant cells with surrounding dermal fibrosis are present within the dermis. This lesion is present at the margin of the specimen. Additional deeper sections were obtained and reviewed. COMMENT: The prior case was reviewed in conjunction. 9:54 AM [facility] Disclaimer An external and internal positive and negative controls are appropriate for the histochemical, immunohistochemical and immunofluorescence stain(s) in this case (if any), except where stated explicitly. The performance characteristics of the stain(s) cited in this report were developed and its performance characteristic determined by the Dermatopathology Laboratory at [facility], directed by Dr. Cindy Thornton. These tests need not be, and therefore are not, approved by the [place] Food and Drug Administration. The tests are used for clinical purposes. Billing Codes Specimen Charges Stain Charges 79008 1 3 9:54 AM TRANSFER AND PUMPHOUSE OPERATOR CHIEF DERMATOPATHOLOGY LABORATORY Embedded Images 3 9:54 AM [facility] Pathology/Cytolo gy TISSUE SPECIMEN FROM SKIN / Unknown 02/01/2023 3:33 AM TRANSFER AND PUMPHOUSE OPERATOR CHIEF 02/06/2023 12:38 PM TRANSFER AND PUMPHOUSE OPERATOR CHIEF Rogerio Clemens MD LAB - PATHOLOGY/CYTO LOGY ORDERABLES DERMATOPATHOLOGY LABORATORY [facility] - Department of Dermatology [facility] [address] [place] [address], [address] [phone] documented in this encounter Visit Diagnoses Not on filedocumented in this encounter Care Teams Fishing Game Warden Relationship Specialty Start Date End Date Carolin Jameson MD [address] [place] [id number] PCP - General 11/29/17 documented as of this encounter
--- OUTSIDE RECORDS SUMMARY | 2024-04-18 13:55 | XMS_ITS | Clinical Summary ---
Author Organization [facility] Address [address] [place] [phone] Phone Care Team Providers Care Early Interventionist Name Role Phone Sonny Jameson MD Primary Care Provider +1- [phone] Allergies No known active allergies Medications No known medications Active Problems No known active problems Social History Tobacco Use Types Packs/Day Years Used Date Smoking Tobacco: Never Smokeless Tobacco: Never Comments No Sex and Gender Information Value Date Recorded Sex Assigned at Not on file Legal Sex Female 10:28 AM REAL ESTATE COORDINATOR Gender Identity Not on file Sexual Orientation Not on file Last Filed Vital Signs Vital Sign Reading Time Taken Comments Blood Pressure 110/62 03/12/2020 10:40 AM REAL ESTATE COORDINATOR Pulse 80 03/12/2020 10:40 AM REAL ESTATE COORDINATOR Temperature 36.2 C (97.1 F) 03/12/2020 10:40 AM REAL ESTATE COORDINATOR Respiratory Rate 16 03/12/2020 10:40 AM REAL ESTATE COORDINATOR Oxygen Saturation 98% 03/12/2020 10:40 AM REAL ESTATE COORDINATOR Inhaled Oxygen Concentration - - Weight 81.6 kg (180 lb) 03/12/2020 10:40 AM REAL ESTATE COORDINATOR Height - - Body Mass Index - - Plan of Treatment Health Maintenance Due Date Last Done Comments Hepatitis C Virus (HCV) Screening 1980 TdaP Immunization 1980 Hepatitis B Immunization (1 of 3 - 19+ 3-dose series) 12/31/1998 Pap Smear 12/31/2000 Cervical Cancer Screening (CCS) 12/31/2009 HPV/Cotest 12/31/2009 Discussion re Starting/Frequ ency of Mammograms 2020 Influenza Immunization (#1) 2023 12/26/2018 SARS-COV-2 Immunization ( season) 2023 06/15/2020 Respiratory Syncytial Virus (RSV) Immunization (Adult) (1 - 1-dose 75+ series) 12/31/2054 Meningococcal Immunization (ACWY) Aged Out No longer eligible based on patient's age to complete this topic Pneumococcal Immunization Combined Aged Out No longer eligible based on patient's age to complete this topic Rotavirus Immunization Aged Out No lo nger eligible based on patient's age to complete this topic Care Teams Early Interventionist Relationship Specialty Start Date End Date Sonny Jameson MD [address] [place] [phone] PCP - General Family Medicine 03/12/20
--- OUTSIDE RECORDS SUMMARY | 2024-04-18 13:55 | XMS_ITS | Patient Health Summary ---
Author Organization [facility] Address [address] [place] [address] Care Team Providers Care Community Associate Name Role Phone Carolin Jameson MD Primary Care Provider [phone] [phone] Note from [facility],non-owned Affiliates and Associated Physician Practices is amultiple site organization consisting of ambulatory clinics and hospital sitesin [place], [place], [place] and [place]. This disclosure is being madepursuant to the Care Everywhere program and may not contain all information available regarding this patient. Last updated 17.[facility] Allergies No known active allergies Medications * Be aware that medications may not be up to date on this document. Alwaysverify current medications with the patient. * Multiple Vitamins-Minerals (MULTIVITAMIN & MINERAL PO) * methotrexate 2.5 MG tablet TAKE 5 TABLETS BY MOUTH IN THE MORNING AND 5 TABLETS IN THE EVENING ONE DAY A WEEK * folic acid (Folvite) 1 MG tablet Take 1 (one) tablet by mouth once daily Active Problems Problem Noted Date Diagnosed Date Basal cell carcinoma of nose 11/29/2017 Anxiety 10/10/2012 Immunizations * INFLUENZA VACCINE, QUADR. (FLUZONE; FLULAVAL; FLUARIX; AFLURIA QUADRIVALENT; 6MO+), 0.5 ML (IIV4)(Given 12/26/2018) Social History Tobacco Use Types Packs/Day Years [...] Comments Blood Pressure 122/72 04/16/2024 9:34 AM GRAIN WEIGHER Pulse 64 12/13/2017 8:54 AM CDT Temperature - - Respiratory Rate - - Oxygen Saturation 98% 12/13/2017 8:54 AM CDT Inhaled Oxygen Concentration - - Weight 75.2 kg (165 lb 12.8 oz) 04/16/2024 9:34 AM GRAIN WEIGHER Height 167.6 cm (5' 6 ) 04/16/2024 9:34 AM GRAIN WEIGHER Body Mass Index 26.76 04/16/2024 9:34 AM GRAIN WEIGHER Procedures * CULTURE URINE COMPREHENSIVE(Performed 04/16/2024) Performed for Incomplete bladder emptying, Urgency incontinence, Stress incontinence * OH INSERT NON-INDWELLING BLADDER(Performed 04/16/2024) Performed for Incomplete bladder emptying, Urgency incontinence, Stress incontinence * URINALYSIS AUTO - POINT OF CARE (AMB) [facility](Performed 04/16/2024) Performed for Incomplete bladder emptying, Urgency incontinence, Stress incontinence * DERMATOPATHOLOGY(Performed 02/01/2023) * DERMATOPATHOLOGY(Performed 01/06/2023) * OH [facility] MOHS MG TQ H/N/H/F/G 1ST STAG 5 BLOC(Performed 12/14/2017) Performed for Basal cell carcinoma of nose * DERMATOPATHOLOGY(Performed 10/12/2017) * DERMATOPATHOLOGY(Performed 10/07/2015) Results * OH INSERT NON-INDWELLING BLADDER (04/16/2024 10:50 AM GRAIN WEIGHER) Narrative Chetna Coates Che, MD - 04/16/2024 10:50 AM GRAIN WEIGHER Chetna Coates Che, MD 04/16/2024 11:57 AM [...] Ketones UA POCT neg OTHER LAB Specific [place] UA 1.010 OTHER LAB Blood Urine POCT neg OTHER LAB pH UA 7.0 OTHER LAB Protein UA neg OTHER LAB Urobilinogen UA 0.2 OTHER LAB Nitrite UA neg OTHER LAB WBC UA neg OTHER LAB Urine URINE / Unknown 04/16/2024 Chetna Coates MD LAB - POINT OF CARE ORDERABLES OTHER LAB * DERMATOPATHOLOGY (02/01/2023 3:33 AM GRAIN WEIGHER) Only the most recent of4 resultswithin the time period is included. Case Report Dermatopathology Report Case: [id number] Authorizing Provider: Rogerio Clemens MD Collected: 02/01/2023 03:33 AM Ordering Location: [facility] DermPath Lab Received: 02/06/2023 12:38 PM Pathologist: Micaela Mcpherson MD Specimen: Skin, lateral to left ala on cheek 9:54 AM [facility] DERMATOPATHOLOGY LABORATORY Final Diagnosis Specimen A. 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 Check Margins. Check Biopsy [id number] 9:54 AM GRAIN WEIGHER DERMATOPATHOLOGY LABORATORY Gross Description Specimen A: Received is one formalin filled container labeled with the patients name and designated lateral to left ala on cheek. The specimen consists of two (2) pieces of a shave removal measuring 7x7x1, 2x2x1 mm. Jar 0. 11/30/202 3 9:54 AM [facility] DERMATOPATHOLOGY LABORATORY Microscopic Description Specimen A. SKIN, [...] The prior case was reviewed in conjunction. 3 9:54 AM [facility] DERMATOPATHOLOGY LABORATORY Disclaimer An external and internal positive and negative controls are appropriate for the histochemical, immunohistochemical and immunofluorescence stain(s) in this case (if any), except where stated explicitly. The performance characteristics of the stain(s) cited in this report were developed and its performance characteristic determined by the Dermatopathology Laboratory at [facility], directed by Dr. Cindy Thornton. These tests need not be, and therefore are not, approved by the [place] Food and Drug Administration. The tests are used for clinical purposes. Billing Codes Specimen Charges Stain Charges 90408 1 3 9:54 AM [facility] DERMATOPATHOLOGY LABORATORY Embedded Images 3 9:54 AM [facility] DERMATOPATHOLOGY LABORATORY Pathology/Cytolo gy TISSUE SPECIMEN FROM SKIN / Unknown 02/01/2023 3:33 AM GRAIN WEIGHER 02/06/2023 12:38 PM GRAIN WEIGHER Rogerio Clemens MD LAB - PATHOLOGY/CYTO LOGY ORDERABLES DERMATOPATHOLOGY LABORATORY [facility] - Department of Dermatology [address], [address] [phone] * [place] [facility] MOHS MG TQ H/N/H/F/G 1ST STAG 5 BLOC (12/14/2017 9:35 AM CDT) Narrative Snow Lora MD - 12/14/2017 9:35 AM CDT Snow Lora MD 12/14/2017 9:35 AM Date of Service: 12/13/2017 Surgery: Mohs micrographic surgery Repair Type: Tumor Type: Basal cell carcinoma Location: left side nose near canthus Derm-Path PreOp Size: 1.0x0.9 cm. PostOp Size: 1.6x1.1 cm. Mohs Level of Defect: fat Procedure: The patient was placed supine on the operating table. The cancer was identified, outlined with a marker, and verified by the patient. The entire surgical field was prepped with iodine. The surgical site was anesthetized using Lidocaine 1% with epinephrine 1:100,000 buffered with sodium bicarbonate 8.4% in a 1:10 ratio. The area of clinically apparent tumor was debulked with 2mm curette. The layer of tissue was then surgically excised using a #15 blade and was then transferred onto a specimen sheet maintaining the orientation of the specimen. Hemostasis was obtained using monopolar electrodessication. The wound site was then covered with a dressing while the tissue samples were processed for examination. The excised tissue was transported to the Mohs histology laboratory maintaining the tissue orientation. The tissue specimen was relaxed so that the entire surgical margin was in a a single horizontal plane for sectioning andinked for precise mapping. A precise reference map was drawn to reflect the sectioning of the specimen, colored inking of the margins, and orientation on the patient. The tissue was processed using horizontal sectioning ofthe base and continuous peripheral margins. The histopathologic sections were reviewed in conjunction with the reference map. Total blocks: 1 Total slides: 4 No additional tumor was identified on microscopic examination, therefore Mohs surgery was complete. Patient will be seeing on 12/14/2017 for repair of the Mohs surgical defect. Dr. Lora performed the entire surgery, and documentation used to initiate this operative report. I entered the information in our [employer] DocFlowsheet with the information provided by Dr. Lora on her handwritten, paper format, surgical worksheet, which was then used to initiate the create of this note. Dr. Lora then reviewed and edited the note as needed to complete the note. Nevin Damian I have reviewed the note, edited it as necessary and performed the entire procedure. Snow Lora MD Sociology Instructor Snow Lora MD PROCEDURE/MINOR SURG ICAL ORDERABLES Care Teams Community Associate Relationship Specialty Start Date End Date Carolin Jameson MD [address] [place] [address] PCP - General 11/29/17
== END 2024-04-18 13:51 | disposition home or self-care (01) ==
LOC: CHSIMG 13:51
PROVIDERS: PCP Family Medicine; Visit Provider Obstetrics & Gynecology Gynecology
DX: Z12.31 Encounter for screening mammogram for malignant neoplasm of breast (principal); R92.8 Other abnormal and inconclusive findings on diagnostic imaging of breast
CPT/HCPCS: 77063; 77067

== ENCOUNTER 2024-04-19 09:39 | Outpatient (CLI) | payer BC, SELFPAY ==
--- NOTE | ~2024-04-19 | MM_ITS ---
EXAMINATION: MM diagnostic anthony RT w cecily HISTORY: Right breast asymmetry TECHNIQUE: Additional 3-D tomosynthesis images of the right breast were performed and synthetic 2-D i mages were generated. CAD analysis was submitted and interpreted. COMPARISON: 03/16/2023, 04/18/2024 BREAST PARENCHYMAL COMPOSITION:Dense: The breasts are heterogeneously dense, which may obscure small masses. FINDINGS: Right breast asymmetry effaces with spot compression. No persistent mass lesion or distorti on. No suspicious microcalcification. IMPRESSION: No mammographic evidence for malignancy. BI-RADS Category 1: Negative Reviewed, dictated and finalized at location . ER FABRICATOR
--- OUTSIDE RECORDS SUMMARY | 2024-04-19 10:22 | XMS_ITS | Referral Summary ---
Author Organization [facility] Address [address] [facility] [place] [address] Care Team Providers Care Assembly Machine Operator Name Role Phone Carolin Jameson MD Primary Care Provider [phone] [phone] Source Comments [facility],non-owned Affiliates and Associated Physician Practices is [place] site organization consisting of ambulatory clinics and hospital sitesin [place], [place], [place] and [place]. This disclosure is being madepursuant to the Care Everywhere program and may not contain all information available regarding this patient. Last updated 17.[facility] Encounters Date Type Department Care Team Description 04/16/2024 Travel 04/16/2024 10:00 AM SECOND BALLER Office Visit [facility] - QUALITY ENGINEERING MANAGER [address], [facility] [address] [place] [address] Chetna Coates Che, MD Incomplete [...] Comments Blood Pressure 122/72 04/16/2024 9:34 AM SECOND BALLER Pulse 64 12/13/2017 8:54 AM CDT Temperature - - Respiratory Rate - - Oxygen Saturation 98% 12/13/2017 8:54 AM CDT Inhaled Oxygen Concentration - - Weight 75.2 kg (165 lb 12.8 oz) 04/16/2024 9:34 AM SECOND BALLER Height 167.6 cm (5' 6 ) 04/16/2024 9:34 AM SECOND BALLER Body Mass Index 26.76 04/16/2024 9:34 AM SECOND BALLER Plan of Treatment Upcoming Encounters Date Type Department Care Team (Late st Contact Info) Description 05/28/2024 1:30 PM CDT Procedure visit [facility] - QUALITY ENGINEERING MANAGER [address] [address] Chetna Coates Che, MD [address] [address] Procedures Procedure Name Priority Date/Time Associated Diagnosis Comments CULTURE URINE COMPREHENSIVE Routine 04/16/2024 10:55 AM SECOND BALLER Incomplete bladder emptying Urgency incontinence Stress incontinence CT INSERT NON-INDWELLING BLADDER Routine 04/16/2024 10:50 AM SECOND BALLER Incomplete bladder emptying Urgency incontinence Stress incontinence URINALYSIS AUTO - POINT OF CARE (AMB) [facility] Routine 04/16/2024 Incomplete bladder emptying Urgency incontinence Stress incontinence from Last 3 Months Results * CULTURE URINE COMPREHENSIVE (04/16/2024 10:55 AM SECOND BALLER) Culture [facility] Comment: CULTURE, URINE, SPECIAL Micro Number: [id number] Test Status: Final Specimen Source: [facility] Specimen Quality: Adequate Result: No Growth Test Performed at: [facility] [phone] NORMAN LOVE MD Microbiology URINE SPECIMEN COLLECTION, CATHETERIZED / Unknown 04/16/2024 10:55 AM SECOND BALLER 04/17/2024 2:47 AM SECOND BALLER Chetna Coates MD LAB - MICROBIOLOGY O RDERABLES [address] [address] * CT INSERT NON-INDWELLING BLADDER (04/16/2024 10:50 AM SECOND BALLER) Narrative Chetna Coates Che, MD - 04/16/2024 10:50 AM SECOND BALLER Chetna Coates Che, MD 04/16/2024 11:57 AM [...] Ketones UA POCT neg OTHER LAB Specific [place] UA 1.010 OTHER LAB Blood Urine POCT neg OTHER LAB pH UA 7.0 OTHER LAB Protein UA neg OTHER LAB Urobilinogen UA 0.2 OTHER LAB Nitrite UA neg OTHER LAB WBC UA neg OTHER LAB Urine URINE / Unknown 04/16/2024 Chetna Coates MD LAB - POINT OF CARE ORDERABLES OTHER LAB from Last 3 Months Care Teams Assembly Machine Operator Relationship Specialty Start Date End Date Carolin Jameson MD [address] [address] PCP - General 11/29/17
--- OUTSIDE RECORDS SUMMARY | 2024-04-19 10:22 | XMS_ITS | Patient Health Summary ---
Author Organization [facility] Address [address] [place] [address] Care Team Providers Care Manuscripts Curator Name Role Phone Carolin Jameson MD Primary Care Provider [phone] [phone] Note from [facility],non-owned Affiliates and Associated Physician Practices is amultiple site organization consisting of ambulatory clinics and hospital sitesin [place], [place] and [place]. This disclosure is being madepursuant to the Care Everywhere program and may not contain all information available regarding this patient. Last updated 17.[facility] Allergies No known active allergies Medications * [...] Comments Blood Pressure 122/72 04/16/2024 9:34 AM OIL LEASE BUYER Pulse 64 12/13/2017 8:54 AM CDT Temperature - - Respiratory Rate - - Oxygen Saturation 98% 12/13/2017 8:54 AM CDT Inhaled Oxygen Concentration - - Weight 75.2 kg (165 lb 12.8 oz) 04/16/2024 9:34 AM OIL LEASE BUYER Height 167.6 cm (5' 6 ) 04/16/2024 9:34 AM OIL LEASE BUYER Body Mass Index 26.76 04/16/2024 9:34 AM OIL LEASE BUYER Procedures * CULTURE URINE COMPREHENSIVE(Performed 04/16/2024) Performed for Incomplete bladder emptying, Urgency incontinence, Stress incontinence * VT INSERT NON-INDWELLING BLADDER(Performed 04/16/2024) Performed for Incomplete bladder emptying, Urgency incontinence, Stress incontinence * URINALYSIS AUTO - POINT OF CARE (AMB) SLU(Performed 04/16/2024) Performed for Incomplete bladder emptying, Urgency incontinence, Stress incontinence * DERMATOPATHOLOGY(Performed 02/01/2023) * DERMATOPATHOLOGY(Performed 01/06/2023) * VT CHMSRG MOHS MG TQ H/N/H/F/G 1ST STAG 5 BLOC(Performed 12/14/2017) Performed for Basal cell carcinoma of nose * DERMATOPATHOLOGY(Performed 10/12/2017) * DERMATOPATHOLOGY(Performed 10/07/2015) Results * CULTURE URINE COMPREHENSIVE (04/16/2024 10:55 AM OIL LEASE BUYER) Pathologist [facility] Culture [facility] Comment: CULTURE, URINE, SPECIAL Micro Number: [id number] Test Status: Final Specimen Source: ath Specimen Quality: Adequate Result: No Growth Test Performed at: [facility] [id number] NORMAN LOVE MD Microbiology URINE SPECIMEN COLLECTION, CATHETERIZED / Unknown 04/16/2024 10:55 AM OIL LEASE BUYER 04/17/2024 2:47 AM OIL LEASE BUYER Chetna Coates MD LAB - MICROBIOLOGY O RDERABLES Performing Organization Address City/State/[facility] Co de Phone Number [facility] [address] [place] [address] * [place] INSERT NON-INDWELLING BLADDER (04/16/2024 10:50 AM OIL LEASE BUYER) Narrative Chetna Coates Che, MD - 04/16/2024 10:50 AM OIL LEASE BUYER Chetna Coates Che, MD 04/16/2024 11:57 AM [...] Ketones UA POCT neg OTHER LAB Specific [place] UA 1.010 OTHER LAB Blood Urine POCT neg OTHER LAB pH UA 7.0 OTHER LAB Protein UA neg OTHER LAB Urobilinogen UA 0.2 OTHER LAB Nitrite UA neg OTHER LAB WBC UA neg OTHER LAB Urine URINE / Unknown 04/16/2024 Chetna Coates MD LAB - POINT OF CARE ORDERABLES Performing Organization Address [facility] Co de Phone Number OTHER LAB * DERMATOPATHOLOGY (02/01/2023 3:33 AM OIL LEASE BUYER) Only the most recent of4 resultswithin the time period is included. Case Report Dermatopathology Report Case: [id number] Authorizing Provider: Rogerio Clemens MD Collected: 02/01/2023 03:33 AM Ordering Location: [facility] DermPath Lab Received: 02/06/2023 12:38 PM Pathologist: Micaela Mcpherson MD Specimen: Skin, lateral to left ala on cheek 9:54 AM OIL LEASE BUYER DERMATOPATHOLOGY LABORATORY Final Diagnosis Specimen A. SKIN, lateral to left ala on cheek: INTRADERMAL MELANOCYTIC NEVUS (D22.39) PRESENT AT MARGIN GRANULOMATOUS DERMATITIS AND DERMAL FIBROSIS (L72.0) PRESENT AT MARGIN (see microscopic description and comment) 9:54 AM [facility] DERMATOPATHOLOGY LABORATORY Clinical History Bx Proven Granulomatous Dermatitis, A ruptured Cyst or Hair Follicle. Check Margins. Check Biopsy [id number] 9:54 AM [facility] DERMATOPATHOLOGY LABORATORY Gross Description Specimen A: Received is one formalin filled container labeled with the patients name and designated lateral to left ala on cheek. The specimen consists of two (2) pieces of a shave removal measuring 7x7x1, 2x2x1 mm. Jar 0. 9:54 AM [facility] DERMATOPATHOLOGY LABORATORY Microscopic Description Specimen A. SKIN, [...] case was reviewed in conjunction. 9:54 AM [facility] DERMATOPATHOLOGY LABORATORY Disclaimer An external and internal positive and negative controls are appropriate for the histochemical, immunohistochemical and immunofluorescence stain(s) in this case (if any), except where stated explicitly. The performance characteristics of the stain(s) cited in this report were developed and its performance characteristic determined by the Dermatopathology Laboratory at [facility], directed by Dr. Cindy Thornton. These tests need not be, and therefore are not, approved by the [place] Food and Drug Administration. The tests are used for clinical purposes. Billing Codes Specimen Charges Stain Charges 74557 1 9:54 AM [facility] DERMATOPATHOLOGY LABORATORY Embedded Images 9:54 AM [facility] DERMATOPATHOLOGY LABORATORY Pathology/Cytolo gy TISSUE SPECIMEN FROM SKIN / Unknown 02/01/2023 3:33 AM OIL LEASE BUYER 02/06/2023 12:38 PM OIL LEASE BUYER Rogerio Clemens MD LAB - PATHOLOGY/CYTO LOGY ORDERABLES DERMATOPATHOLOGY LABORATORY [facility] - Department of Dermatology [address], [address] [phone] * VT CHMSRG MOHS MG TQ H/N/H/F/G 1ST STAG [...] report. I entered the information in our [employer] DocFlowsheet with the information provided by Dr. Lora on her handwritten, paper format, surgical worksheet, which was then used to initiate the create of this note. Dr. Lora then reviewed and edited the note as needed to complete the note. Nevin Damian I have reviewed the note, edited it as necessary and performed the entire procedure. Snow Lora MD Credit Reporting Clerk Snow Lora MD PROCEDURE/MINOR SURG ICAL ORDERABLES Care Teams Manuscripts Curator Relationship Specialty Start Date End Date Carolin Jameson MD [address] [place] [address] PCP - General 11/29/17
--- OUTSIDE RECORDS SUMMARY | 2024-04-19 10:22 | XMS_ITS | Clinical Summary ---
Author Organization [facility] Address [address] [place] [address] Care Team Providers Care Environmental Engineering Professor Name Role Phone Carolin Jameson MD Primary Care Provider [phone] [phone] Source Comments [facility],non-owned Affiliates and Associated Physician Practices is amultiple site organization consisting of ambulatory clinics and hospital sitesin [place], [place], [place] and [place]. This disclosure is being madepursuant to the Care Everywhere program and may not contain all information available regarding this patient. Last updated 17.[facility] Allergies No known active allergies Medications * [...] Department Care Team Description 04/16/2024 10:00 AM EXTRACTOR PULLER Office Visit [facility] - ANODIZING LINE OPERATOR [address] [place] [address] Chetna Coates Che, MD Incomplete [...] Comments Blood Pressure 122/72 04/16/2024 9:34 AM EXTRACTOR PULLER Pulse 64 12/13/2017 8:54 AM CDT Temperature - - Respiratory Rate - - Oxygen Saturation 98% 12/13/2017 8:54 AM CDT Inhaled Oxygen Concentration - - Weight 75.2 kg (165 lb 12.8 oz) 04/16/2024 9:34 AM EXTRACTOR PULLER Height 167.6 cm (5' 6 ) 04/16/2024 9:34 AM EXTRACTOR PULLER Body Mass Index 26.76 04/16/2024 9:34 AM EXTRACTOR PULLER Plan of Treatment Upcoming Encounters Date Type Department Care Team (Late st Contact Info) Description 05/28/2024 1:30 PM CDT Procedure visit [facility] - ANODIZING LINE OPERATOR [address] [facility] [address] [place] [address] Chetna Coates Che, MD [address] [facility] [address] [place] [address] Health Maintenance Due Date Last [...] CULTURE URINE COMPREHENSIVE Routine 04/16/2024 10:55 AM EXTRACTOR PULLER Incomplete bladder emptying Urgency incontinence Stress incontinence SC INSERT NON-INDWELLING BLADDER Routine 04/16/2024 10:50 AM EXTRACTOR PULLER Incomplete bladder emptying Urgency incontinence Stress incontinence URINALYSIS AUTO - POINT OF CARE (AMB) [facility] Routine 04/16/2024 Incomplete bladder emptying Urgency incontinence Stress incontinence from Last 3 Months Results * CULTURE URINE COMPREHENSIVE (04/16/2024 10:55 AM EXTRACTOR PULLER) Pathologist [facility] Culture [facility] Comment: CULTURE, URINE, SPECIAL Micro Number: [id number] Test Status: Final Specimen Source: [place] Specimen Quality: Adequate Result: No Growth Test Performed at: [facility] [address] NORMAN LOVE MD Microbiology URINE SPECIMEN COLLECTION, CATHETERIZED / Unknown 04/16/2024 10:55 AM EXTRACTOR PULLER 04/17/2024 2:47 AM EXTRACTOR PULLER Chetna Coates MD LAB - MICROBIOLOGY O RDERABLES [address] [address] * SC INSERT NON-INDWELLING BLADDER (04/16/2024 10:50 AM EXTRACTOR PULLER) Narrative Chetna Coates Che, MD - 04/16/2024 10:50 AM EXTRACTOR PULLER Chetna Coates Che, MD 04/16/2024 11:57 AM [...] Ketones UA POCT neg OTHER LAB Specific [place] UA 1.010 OTHER LAB Blood Urine POCT neg OTHER LAB pH UA 7.0 OTHER LAB Protein UA neg OTHER LAB Urobilinogen UA 0.2 OTHER LAB Nitrite UA neg OTHER LAB WBC UA neg OTHER LAB Urine URINE / Unknown 04/16/2024 Chetna Coates MD LAB - POINT OF CARE ORDERABLES OTHER LAB from Last 3 Months Care Teams Environmental Engineering Professor Relationship Specialty Start Date End Date Carolin Jameson MD [address] [place] [address] PCP - General 11/29/17
--- OUTSIDE RECORDS SUMMARY | 2024-04-19 10:23 | XMS_ITS | Clinical Summary ---
Author Organization [facility] Address [address] [place] [address] Phone Care Team Providers Care Oil Well Cable Tool Operator Name Role Phone Sonny Jameson MD Primary Care Provider +1- [phone] Allergies No known active allergies Medications No known medications Active Problems No known active problems Social History Tobacco Use Types Packs/Day Years Used Date Smoking Tobacco: Never Smokeless Tobacco: Never Comments No Sex and Gender Information Value Date Recorded Sex Assigned at Not on file Legal Sex Female 10:28 AM CUSTOMER ACCOUNT MANAGER Gender Identity Not on file Sexual Orientation Not on file Last Filed Vital Signs Vital Sign Reading Time Taken Comments Blood Pressure 110/62 03/12/2020 10:40 AM CUSTOMER ACCOUNT MANAGER Pulse 80 03/12/2020 10:40 AM CUSTOMER ACCOUNT MANAGER Temperature 36.2 C (97.1 F) 03/12/2020 10:40 AM CUSTOMER ACCOUNT MANAGER Respiratory Rate 16 03/12/2020 10:40 AM CUSTOMER ACCOUNT MANAGER Oxygen Saturation 98% 03/12/2020 10:40 AM CUSTOMER ACCOUNT MANAGER Inhaled Oxygen Concentration - - Weight 81.6 kg (180 lb) 03/12/2020 10:40 AM CUSTOMER ACCOUNT MANAGER Height - - Body Mass Index - [...] age to complete this topic Care Teams Oil Well Cable Tool Operator Relationship Specialty Start Date End Date Sonny Jameson MD [address] [place] [id number] PCP - General Family Medicine 03/12/20
--- OUTSIDE RECORDS SUMMARY | 2024-04-19 10:23 | XMS_ITS | Encounter Summary ---
Author Organization [facility] Address [address] [place] [address] Care Team Providers Care Manager Process Name Role Phone Carolin Jameson MD Primary Care Provider +1 [phone] Encounter Details Date Type Department Care Team (Late st Contact Info) Description 01/09/2023 Lab Requisition [facility] - DermPath Lab [address] [address] Rogerio Clemens MD [address] [place] [address] Social History Tobacco Use Types [...] CDT Procedure visit [facility] - PICCOLO MECHANIC [address], [facility] [address] [place] [address] Chetna Coates Che, MD [address] [facility] [address] [place] [address] documented as of this encounter Procedures Procedure Name Priority Date/Time Associated Diagnosis Comments DERMATOPATHOLOGY Routine 01/06/2023 12:0 0 AM CDT documented in this encounter Results * DERMATOPATHOLOGY (01/06/2023 12:00 AM CDT) Case Report Dermatopathology Report Case: [id number] Authorizing Provider: Rogerio Clemens MD Collected: 01/06/2023 12:00 AM Ordering Location: [facility] DermPath Lab Received: 01/09/2023 04:08 PM Pathologist: Deanne Leyva MD Specimen: Skin, lat to left ala on cheek 1:45 PM [facility] DERMATOPATHOLOGY LABORATORY Amended Report Correction of Site location from Chest to Cheek 1:45 PM [facility] DERMATOPATHOLOGY LABORATORY Final Diagnosis Specimen A. SKIN, lat to left ala on cheek: GRANULOMATOUS DERMATITIS CONSISTENT WITH A RUPTURED CYST OR HAIR FOLLICLE (L72.0) (see comment) 1:45 PM [facility] DERMATOPATHOLOGY LABORATORY Amendment electronically signed by Deanne Leyva MD on 01/16/2023 at 1:45 PM Clinical History R/O SCC vs BCC 1:45 PM [facility] DERMATOPATHOLOGY LABORATORY Gross Description Specimen A: Received is one formalin filled container labeled with the patient's name and designated lat to left ala on cheek. The specimen consists of a (2) pieces shave biopsy measuring 4x2x1, 5x4x1 mm. Jar 0. 1:45 PM MOTOR ASSEMBLER DERMATOPATHOLOGY LABORATORY Microscopic Description Specimen A. SKIN, lat to left ala on cheek: Neutrophils, histiocytes, and multinucleated giant cells are present within the dermis. COMMENT: Given the superficial nature of the biopsy specimen, a deeper dermal process cannot be excluded. 1:45 PM [facility] DERMATOPATHOLOGY LABORATORY Disclaimer An external and internal positive and negative controls are appropriate for the histochemical, immunohistochemical and immunofluorescence stain(s) in this case (if any), except where stated explicitly. The performance characteristics of the stain(s) cited in this report were developed and its performance characteristic determined by the Dermatopathology Laboratory at [facility], directed by Dr. Cindy Thornton. These tests need not be, and therefore are not, approved by the [place] Food and Drug Administration. The tests are used for clinical purposes. Billing Codes Specimen Charges Stain Charges 13088 1 3 1:45 PM MOTOR ASSEMBLER DERMATOPATHOLOGY LABORATORY Embedded Images 3 1:45 PM MOTOR ASSEMBLER DERMATOPATHOLOGY LABORATORY Pathology/Cytolog y TISSUE SPECIMEN FROM SKIN / Unknown 01/06/2023 01/09/2023 4:08 PM CDT Rogerio Clemens MD LAB - PATHOLOGY/CYTO LOGY ORDERABLES DERMATOPATHOLOGY LABORATORY [facility] - Department of Dermatology [address], [address] [phone] documented in this encounter Visit Diagnoses Not on filedocumented in this encounter Care Teams Manager Process Relationship Specialty Start Date End Date Carolin Jameson MD [address] [place] [id number] PCP - General 11/29/17 documented as of this encounter
--- OUTSIDE RECORDS SUMMARY | 2024-04-19 10:23 | XMS_ITS | Encounter Summary ---
Author Organization [facility] Address [address] [facility] [address] Care Team Providers Care Snuff Drier Name Role Phone Carolin Jameson MD Primary Care Provider [phone] [phone] Encounter Details Date Type Department Care Team (Late st Contact Info) Description 02/06/2023 Lab Requisition [facility] - DermPath Lab [address] [facility] [place] [address] Rogerio Clemens MD [address] [place] [address] Social History Tobacco Use Types [...] CDT Procedure visit [facility] - FIRE ALARM REPAIRER [address], [facility] [address] [place] [address] Chetna Coates Che, MD [address] [facility] [address] [place] [address] documented as of this encounter Procedures Procedure Name Priority Date/Time Associated Diagnosis Comments DERMATOPATHOLOGY Routine 02/01/2023 3:33 AM WEEKEND ANCHOR documented in this encounter Results * DERMATOPATHOLOGY (02/01/2023 3:33 AM WEEKEND ANCHOR) Case Report Dermatopathology Report Case: [id number] Authorizing Provider: Rogerio Clemens MD Collected: 02/01/2023 03:33 AM Ordering Location: [facility] DermPath Lab Received: 02/06/2023 12:38 PM Pathologist: Micaela Mcpherson MD Specimen: Skin, lateral to left ala on cheek 9:54 AM [facility] DERMATOPATHOLOGY LABORATORY Final Diagnosis Specimen A. 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 Check Margins. Check Biopsy [id number] 9:54 AM [facility] DERMATOPATHOLOGY LABORATORY Gross Description Specimen A: Received is one formalin filled container labeled with the patients name and designated lateral to left ala on cheek. The specimen consists of two (2) pieces of a shave removal measuring 7x7x1, 2x2x1 mm. Jar 0. 9:54 AM [facility] DERMATOPATHOLOGY LABORATORY Microscopic Description Specimen A. SKIN, [...] case was reviewed in conjunction. 9:54 AM [facility] DERMATOPATHOLOGY LABORATORY Disclaimer An external and internal positive and negative controls are appropriate for the histochemical, immunohistochemical and immunofluorescence stain(s) in this case (if any), except where stated explicitly. The performance characteristics of the stain(s) cited in this report were developed and its performance characteristic determined by the Dermatopathology Laboratory at [facility], directed by Dr. Cindy Thornton. These tests need not be, and therefore are not, approved by the [place] Food and Drug Administration. The tests are used for clinical purposes. Billing Codes Specimen Charges Stain Charges 29649 1 3 9:54 AM WEEKEND ANCHOR DERMATOPATHOLOGY LABORATORY Embedded Images 3 9:54 AM [facility] DERMATOPATHOLOGY LABORATORY Pathology/Cytolo gy TISSUE SPECIMEN FROM SKIN / Unknown 02/01/2023 3:33 AM WEEKEND ANCHOR 02/06/2023 12:38 PM WEEKEND ANCHOR Rogerio Clemens MD LAB - PATHOLOGY/CYTO LOGY ORDERABLES DERMATOPATHOLOGY LABORATORY [facility] - Department of Dermatology [facility] Medicine [address] [place] [address], [address] [phone] documented in this encounter Visit Diagnoses Not on filedocumented in this encounter Care Teams Snuff Drier Relationship Specialty Start Date End Date Carolin Jameson MD [address] [place] [address] PCP - General 11/29/17 documented as of this encounter
--- OUTSIDE RECORDS SUMMARY | 2024-04-19 10:23 | XMS_ITS ---
Author Organization [facility] Address [address] [address] [place] [address] Care Team Providers Care Supervisor Blood Name Role Phone Saqib [facility] Licha Primary Care Provider U elmashamika Toan Angelic Morris [phone] Allergies No Known Allergies REASON FOR VISIT +MALU/flc Encounters Encounter Location Date Provider Diagnosis [facility] [address] [place] [address] 08/03/2023 Angelic Sepulveda Plan Of Treatment No Information Progress Notes * Bhargav DYERB:1980 ([age] yo F)Acc No.[id number]:08/03/2023 Progress Notes Patient: Izzy CABRAL Provider: Amelia SEPULVEDA MD :1980 A ge:43 Y S ex:Female Date:08/03/2023 Address:[address] [place] [address] [id number] Pcp:Licha Cerrato [facility] Subjective: * Chief Complaints: * 1 . +MALU/flc. * HPI: j oint pain: 05/01/23, mild periarticular soft tissue swelling of bilateral PIPs, MALU 1:40 (speckled), 1:80 (homogeneous). * Medical History: A nxiety, asthma, fracture 3rd metatarsal. * Surgical History: t ubal ligation . * Family History: multiple sclerosis, dementia. * Allergies: N .K.D.A. Objective: * Vitals: Assessment: Plan: * Treatment: * Billing Information: * Visit Code: * Procedure Codes: * Electronic signature of Angelic Sepulveda MD on 04/19/2024 at 10:22 AM GLOVE STITCHER Sign off status: Pending * Provider: Amelia SEPULVEDA MD Date: 0 08/03/2023 Generated for Priscila serrano/Sylvia/Bretitting on: 0 04/19/2024 10:22 AM GLOVE STITCHER History and Physical Notes * HPI (History of Present Illness) Category Sub-Category Detail Notes Category Not es joint pain 05/01/23, mild p eriarticular soft tissue swelling of bilateral PIPs, MALU 1:40 (speckled), 1:80 (homogeneous).
--- OUTSIDE RECORDS SUMMARY | 2024-04-19 10:23 | XMS_ITS | Referral Summary ---
Author Organization [address] [address] Care Team Providers Care Activated Sludge Operator Name Role Phone Sonny Jameson MD Primary Care Provider [phone] [phone] Encounters Date Type Department Care Team Description 02/20/2024 10:05 AM WOOD CRAFTSMAN Ancillary Procedure [facility] Imaging at [address] [address] Lower respiratory infection 02/20/2024 10:00 AM WOOD CRAFTSMAN Office Visit [facility] Convenient Care at [address] [address] Rere Reyes, YARELI Lower respiratory [...] on file Legal Sex Female 1:58 AM WOOD CRAFTSMAN Gender Identity Not on file Sexual Orientation Not on file Last Filed Vital Signs Vital Sign Reading Time Taken Comments Blood Pressure 108/66 02/20/2024 9:53 AM WOOD CRAFTSMAN Pulse 86 02/20/2024 9:53 AM WOOD CRAFTSMAN Temperature 36.9 C (98.4 F) 02/20/2024 9:53 AM WOOD CRAFTSMAN Respiratory Rate 20 02/20/2024 9:53 AM WOOD CRAFTSMAN Oxygen Saturation 97% 02/20/2024 9:53 AM WOOD CRAFTSMAN Inhaled Oxygen Concentration - - Weight 75.3 kg (166 lb) 02/20/2024 9:53 AM WOOD CRAFTSMAN Height 169.5 cm (5' 6.73 ) 01/29/2023 9:44 AM CS T Body Mass Index 26.21 01/29/2023 9:44 AM WOOD CRAFTSMAN Plan of Treatment Not on file Procedures Procedure Name Priority Date/Time Associated Diagnosis Comments XR CHEST PA LATERAL 2 VIEWS Schedule MELLISA, Read MELLISA (Appt Today, Awaiting Results) 02/20/2024 10:09 AM WOOD CRAFTSMAN Lower respiratory infection from Last 3 Months Results * XR Chest Pa Lateral 2 Views (02/20/2024 10:09 AM WOOD CRAFTSMAN) Anatomical Region Laterality Modality Body, Chest N/A Digital Radiogra phy 02/20/2024 11:4 6 AM WOOD CRAFTSMAN Narrative 02/20/2024 11:47 AM WOOD CRAFTSMAN EXAM DESCRIPTION: XR CHEST PA LATERAL 2 [...] Amandeep Christie M.D. AM T: Report ID: [id number] Reading Location: [id number] Procedure Note Amandeep Christie MD - 02/20/2024 [...] Amandeep Christie M.D. AM T: Report ID: [id number] Reading Location: [place] [address] Rere Reyes INSTALLMENT AGENT IMG XR PROCEDURES Final Re sult from Last 3 [place] [address] Own Products [place] Own Products [place] Care Teams Activated Sludge Operator Relationship Specialty Start Date End Date Sonny Jameson MD PCP - General Family Medicine 02/13/22
--- OUTSIDE RECORDS SUMMARY | 2024-04-19 10:23 | XMS_ITS | Encounter Summary ---
Author Organization [facility] Address [address] [facility] [place] [address] Care Team Providers Care Metal Patternmaker Name Role Phone Carolin Jameson MD Primary Care Provider [phone] Encounter Details Date Type Department Care Team (Late Contact Info) Description 10/13/2017 Lab Requisition [facility] [address] [facility], [place] [address] Rogerio Clemens MD [address] [place] [address] Social History Tobacco Use Types [...] CDT Procedure visit [facility] - TREAD TUBER MACHINE OPERATOR [address] [address] Chetna Coates Che, MD [address] [facility] [address] [place] [address] documented as of this encounter Procedures Procedure Name Priority Date/Time Associated Diagnosis Comments DERMATOPATHOLOGY Routine 10/12/2017 12:0 0 AM CDT documented in this encounter Results * DERMATOPATHOLOGY (10/12/2017 12:00 AM CDT) Case Report Dermatopathology Report Case: [id number] Authorizing Provider: Rogerio Clemens MD Collected: 10/12/2017 [...] The specimen consists of an excision measuring [id number]. The epidermal surface is unremarkable. The margin is inked green. The specimen is bisected and submitted in 1 cassette. Jar 0. Specimen B: Received is one formalin filled container labeled with the patient's name and designated left side nose near canthus. The specimen consists of a shave biopsy measuring [id number]. Jar 0. 8 11:33 AM CDT DERMATOPATHOLOGY [...] characteristic determined by the Dermatopathology Laboratory at [facility]. These tests need not be, and therefore are not, approved by the [place] Food and Drug Administration. The tests are used for clinical purposes. Billing Codes Specimen Charges Stain Charges 44878 60929 1 1 8 11:33 AM CDT DERMATOPATHOLOGY LABORATORY Embedded Images 8 11:33 AM CDT DERMATOPATHOLOGY LABORATORY Pathology/Cytology TISSUE SPECIMEN FROM SKIN / Unknown 10/12/2017 10/13/2017 12:35 PM CDT Miscellaneous samples (specimen) TISSUE SPECIMEN FROM SKIN / Unknown 10/12/2017 10/13/2017 12:35 PM CDT Rogerio Clemens MD LAB - PATHOLOGY/CYTO LOGY ORDERABLES DERMATOPATHOLOGY LABORATORY [facility] - Department of Dermatology [address] [place] [address] [address] [phone] documented in this encounter Visit Diagnoses Not on filedocumented in this encounter Care Teams Metal Patternmaker Relationship Specialty Start Date End Date Carolin Jameson MD [address] [place] [id number] PCP - General 11/29/17 documented as of this encounter
--- OUTSIDE RECORDS SUMMARY | 2024-04-19 10:23 | XMS_ITS | Clinical Summary ---
Author Organization [address] Address [address] [place] [id number] Care Team Providers Care Incoming Freight Clerk Name Role Phone Sonny Jameson MD Primary Care Provider [phone] Allergies No known active allergies Medications multivitamin [...] Department Care Team Description 02/20/2024 10:05 AM SENIOR MARKETING COORDINATOR Ancillary Procedure [facility] Imaging at [address] [address] Lower respiratory infection 02/20/2024 10:00 AM SENIOR MARKETING COORDINATOR Office Visit [facility] Convenient Care at [address] [address] Rere Reyes NP Lower respiratory infection (Primary Dx) from Last 3 Months Social History Tobacco Use Types Packs/Day Years Used Date Smoking Tobacco: Never Smokeless Tobacco: Never Tobacco Cessation:Counseling Given: Not Answered Comments Unknown Sex and Gender Information Value Date Recorded Sex Assigned at Not on file Legal Sex Female 1:58 AM SENIOR MARKETING COORDINATOR Gender Identity Not on file Sexual Orientation Not on file Obstetrics History Last Filed Vital Signs Vital Sign Reading Time Taken Comments Blood Pressure 108/66 02/20/2024 9:53 AM SENIOR MARKETING COORDINATOR Pulse 86 02/20/2024 9:53 AM SENIOR MARKETING COORDINATOR Temperature 36.9 C (98.4 F) 02/20/2024 9:53 AM SENIOR MARKETING COORDINATOR Respiratory Rate 20 02/20/2024 9:53 AM SENIOR MARKETING COORDINATOR Oxygen Saturation 97% 02/20/2024 9:53 AM SENIOR MARKETING COORDINATOR Inhaled Oxygen Concentration - - Weight 75.3 kg (166 lb) 02/20/2024 9:53 AM SENIOR MARKETING COORDINATOR Height 169.5 cm (5' 6.73 ) 01/29/2023 9:44 AM CS T Body Mass Index 26.21 01/29/2023 9:44 AM SENIOR MARKETING COORDINATOR Plan of Treatment Health Maintenance Due Date [...] (Appt Today, Awaiting Results) 02/20/2024 10:09 AM SENIOR MARKETING COORDINATOR Lower respiratory infection from Last 3 Months Results * XR Chest Pa Lateral 2 Views (02/20/2024 10:09 AM SENIOR MARKETING COORDINATOR) Anatomical Region Laterality Modality Body, Chest N/A Digital Radiogra phy 02/20/2024 11:4 6 AM SENIOR MARKETING COORDINATOR Narrative 02/20/2024 11:47 AM SENIOR MARKETING COORDINATOR EXAM DESCRIPTION: XR CHEST PA LATERAL 2 [...] Amandeep Christie M.D. AM T: Report ID: [id number] Reading Location: [id number] Procedure Note Amandeep Christie MD - 02/20/2024 [...] Amandeep Christie M.D. AM T: Report ID: [id number] Reading Location: [id number] Rere Reyes NP IMG XR PROCEDURES Final Re sult from Last [address] [place] [address] [place] Care Teams Incoming Freight Clerk Relationship Specialty Start Date End Date Sonny Jameson MD PCP - General Family Medicine 02/13/22
--- OUTSIDE RECORDS SUMMARY | 2024-04-19 10:23 | XMS_ITS | Patient Health Record ---
Author Organization [facility] Address [address] [facility] [address] [place] [address] Care Team Providers Care Molasses Feed Mixer Name Role Phone Saqib ZUCKER [facility], [place] Primary Care Provider U Angelic Page Unavailable [phone] Allergies No Known Allergies Reason For Referral No Information Plan Of Treatment No Information Insurance Providers Payer Name Payer Address Payer Phone Subscriber Number Group Number Insured Name Patient Relationship to Insured Coverage Start Date Coverage End Date [employer] [facility] [address] [place] [address] [id number] Izzy Hawkins Self - patient is the insured Medical (General) History Medical History History ICD Code anxiety, asthma, fracture 3rd metatarsal Surgical History Surgery Date(Month/Year) tubal ligation
== END 2024-04-19 09:40 | disposition home or self-care (01) ==
LOC: CHSIMG 09:40
PROVIDERS: PCP Family Medicine; Visit Provider Obstetrics & Gynecology Gynecology
DX: R92.8 Other abnormal and inconclusive findings on diagnostic imaging of breast (principal)
CPT/HCPCS: 77061; 77065; G0279